=== PATIENT | female | born 1965 | race Caucasian/White ===

== ENCOUNTER 2023-09-23 08:27 | Emergency (ER) | payer OTHER, SELFPAY ==
[2023-09-23 08:39] VITALS: BP 161/96
--- NOTE | 2023-09-23 09:38 | ED.GENMED ---
History of Present Illness
General
Chief Complaint: Anxiety
Source: patient
Exam Limitations: none
Time Seen by Provider: 09/23/23 09:12
Travel History
Have you had any contact with someone who has COVID-19?: No
Do you have any symptoms of coronavirus? Fever > 100 degrees, chills, cough, shortness of breath, sore throat, loss of taste or smell, muscle aches, or headache?: No
History of Present Illness
History of Present Illness:
58-year-old female with history of rheumatoid arthritis, IBS, anxiety as well as hypertension presents complaining of overall not feeling well dehydrated feels dry with intermittent abdominal pain. She has been worked up for her abdominal pain in
the recent 2 months with CAT scan and MRIs of her abdomen. She is due to see GI next week. Currently at the time my exam she denies left lower abdominal pain�no notes in the triage. She notes excess belching. She is here in town visiting her son
who just had a baby. No fevers. No chest pain. She woke up this morning with an anxiety and her full days worth of Klonopin this morning. She does deal with constipation. She has been using MiraLAX. Occasionally she does use Linzess. No other
complaints at this time
Phy Exam
Physical Exam
Physical Exam:
General: Well-appearing female no acute respiratory distress
HEENT: Normocephalic atraumatic neck supple
Heart: Regular rate and rhythm no murmurs
Lungs: Clear to auscultation bilaterally no wheezing
Abdomen is soft mild epigastric tenderness no guarding rebound normal bowel sounds nondistended. No left lower quadrant pain or flank pain
Psychiatric exam: Does seem anxious has a rapid rate of speech
Course
Orders/Labs/Results
Orders:
Orders
09/23/23 09:34
0.9% Sodium Chloride 1000 ml [Nss] 1,000 ml IV BOLUS
09/23/23 09:58
Complete Blood Count/With Diff Urgent
Comprehensive Metabolic Panel Urgent
Lipase Urgent
Urinalysis Reflex To Culture Urgent
Date Specimen was Collected: 09/23/23
Time Specimen was Collected: 09:36
Abnormal Lab Results
09/23/23
09:58
MPV 10.5 H fL
(7.4-10.4)
Sodium 130 L mmol/L
(135-145)
BUN 18 H mg/dl
(7-17)
Glucose 101 H mg/dl
(70-99)
Calcium 10.3 H mg/dl
(8.4-10.2)
09/23/23 09:58
09/23/23 09:58
Vital Signs
Initial and Last Documented VS:
Initial Vital Signs
Temp Pulse Resp BP Pulse Ox
98.7 F 88 20 161/96 98
09/23/23 08:39 09/23/23 08:39 09/23/23 08:39 09/23/23 08:39 09/23/23 08:39
Last Documented Vital Signs
Temp Pulse Resp BP Pulse Ox
98.7 F 88 20 161/96 98
09/23/23 08:39 09/23/23 08:39 09/23/23 08:39 09/23/23 08:39 09/23/23 08:39
MDM/Problems Addressed
Differential Diagnosis Includes:
Patient has multiple complaints including intermittent abdominal pain, currently there is no abdominal pain, with anxiety and sensation of dehydration and overall not feeling well. No fevers here. Abdomen exam is quite benign. Will check labs
start fluids and check urine.
*Critical Care Note
Total Time (30-74mins, 75-104mins- exclusive of procedures): Not Applicable
Update Note
Update Note:
Patient reevaluated is feeling better now walking well. Labs reviewed. Sodium was slightly low at 130. She did receive a liter of fluid here. No other concerning findings in the blood work. Abdomen exam was benign no indication for further
imaging. She will follow-up with GI as planned next week
ED Attending Note
-
Portions of this chart may have been created with voice recognition software.� Occasional wrong word or��sound alike� substitutions may have occurred due to the inherent limitations of voice recognition software.
Discharge Plan
Departure
Patient Disposition: Home (Routine Discharge)
Date of Disposition: 09/23/23
Time of Disposition: 11:14
Patient with high blood pressure during this ER visit?: No
Discharge Problem:
Acute dehydration
Instructions: Dehydration, Adult ED
Referrals:
Mike Marlow DO [Family Provider] -
Activity Restrictions/Additional Instructions:
Please continue current medications. Return for worsening symptoms otherwise follow-up with GI as planned
[2023-09-23] MEDS: NSS 1000 IV (09:59)
[2023-09-23 10:06] LABS: % Basophils 0.6 % (0-2); % Immature Granulocytes 0.3 % (0-0.5); % Lymphocytes 32.7 % (20.5-51.1); % Monocytes 6.8 % (1.7-9.3); % Neutrophils 57.6 % (42.2-75.2); Absolute Eosinophils 0.1 10^3/uL (0-0.7); Absolute Lymphocytes 2.1 10^3/uL (1.2-3.4); Absolute Monocytes 0.4 10^3/uL (0.1-0.6); Absolute Neutrophils 3.7 10^3/uL (1.4-6.5); Hematocrit 40.7 % (37.0-47.0); Hemoglobin 13.8 g/dL (12.0-16.0); Mean Corp Hgb Conc. 33.9 g/dL (33.0-37.0); Mean Corpuscular Hgb 30.1 pg (27.0-31.0); Mean Corpuscular Volume 88.7 fL (81.0-99.0); Mean Platelet Volume 10.5 fL (7.4-10.4); Nucleated Red Blood Cells % 0 %; Platelet Count 254 10^3/uL (130-400); Red Blood Cell Count 4.59 10^6/uL (4.20-5.40); Red Cell Dist. Width 12.2 % (11.5-14.5); White Blood Cell Count 6.4 10^3/uL (4.8-10.8)
[2023-09-23 10:27] LABS: ALT (SGPT) 17 U/L (0-35); AST (SGOT) 25 U/L (14-36); Alkaline Phosphatase 65 U/L (38-126); Blood Urea Nitrogen 18 mg/dl (7-17); Calcium 10.3 mg/dl (8.4-10.2); Carbon Dioxide 26 mmol/L (22-30); Chloride 98 mmol/L (98-107); Glucose 101 mg/dl (70-99); Lipase 102 U/L (23-300); Potassium 4.3 mmol/L (3.5-5.1); Sodium 130 mmol/L (135-145); Total Bilirubin 0.9 mg/dl (0.2-1.3); Total Protein 7.7 g/dl (6.3-8.2); eGFR > 60.00
[2023-09-23 10:52] LABS: Urine Albumin Negative (Neg - Trace); Urine Bilirubin Negative (Negative); Urine Character Clear (Clear); Urine Color Yellow; Urine Glucose Negative (Negative); Urine Ketone Negative (Negative); Urine Leukocyte Negative (Negative); Urine Nitrite Negative (Negative); Urine Occult Blood Negative (Negative); Urine Specific Gravity 1.005 (<1.030); Urine Urobilinogen Negative (Neg - 1+)
[2023-09-23 11:53] VITALS: BP 152/80
== END 2023-09-23 11:57 | disposition home or self-care (01) ==
LOC: EMR 08:27
PROVIDERS: Physician Assistant; EMERGENCY PHYSICIAN Emergency Medicine; FAMILY PHYSICIAN Family Medicine
DX: E86.0 Dehydration (principal); I10 Essential (primary) hypertension; F41.9 Anxiety disorder, unspecified; K58.9 Irritable bowel syndrome, unspecified; M06.9 Rheumatoid arthritis, unspecified
CPT/HCPCS: 99284; 96360; 80053; 81003; 83690; 85025

== ENCOUNTER → 2023-10-02 06:26 | Day surgery (SDC) | payer OTHER, SELFPAY | LOC: GI 06:26 | PROVIDERS: ATTENDING PHYSICIAN Internal Medicine Gastroenterology | DX: R10.32 Left lower quadrant pain (principal); R19.4 Change in bowel habit; K57.30 Diverticulosis of large intestine without perforation or abscess without bleeding; K64.8 Other hemorrhoids | CPT/HCPCS: 45378 ==